=== PATIENT | male | born 1960 | race Two or more races ===

== ENCOUNTER 2023-05-01 17:29 | Inpatient (IN) | payer OTHER ==
[~2023-05-01] VITALS: Ht 177.8 cm; Wt 104.3 kg
[2023-05-01] MEDS ORDERED: WARFARIN SODIUM5 MG PO (17:41)
[2023-05-01] MEDS ORDERED: ROSUVASTATIN CAL5 MG PO (17:41)
[2023-05-01 19:12] LABS: PH,URINE 5.5 (5.0-8.0); URINE APPEARANCE Clear; URINE BACTERIA 12.5 uL (0.0-1933); URINE BILIRRUBIN Negative (NEGATIVE); URINE BLOOD Moderate; URINE COLOR Yellow; URINE EPITHELIAL CELLS 8.7 uL (0.0-38.8); URINE GLUCOSE Negative (NEGATIVE); URINE LEUKOCYTE Negative; URINE NITRATE Negative; URINE PROTEIN Negative (NEGATIVE); URINE RBC 24.7 uL (0.0-20.8); URINE WBC 4.4 uL (0.0-23.2)
[2023-05-01 19:44] LABS: HEMATOCRIT 39.8 % (39.0-48.0); HEMOGLOBIN 13.7 g/dL (13-16.00); MEAN CELL VOLUME 91.4 fL (80.0-100.00); MEAN CORPUSCULAR HEMOGLOBIN 31.3 pg (27.00-32.0); MEAN CORPUSCULAR HGB CONC 34.3 g/dl (32.0-36.0); PLATELET COUNT 200 K/uL (150-450); RED BLOOD COUNT 4.36 M/uL (4.00-6.00); RED CELL DISTRIBUTION WIDTH 13.6 % (11.5-14.5)
[2023-05-01 19:48] LABS: ERYTHROCYTE SEDIMENTATION RATE 53 mm/hr
[2023-05-01 20:00] LABS: D DIMER 0.5 MG/L; INR 2.33
[2023-05-01 20:04] LABS: ALBUMIN 3.3 gm/dL (3.4-5.0); BILIRUBIN TOTAL 0.73 mg/dL (0.3-1.2); CALCIUM 9.5 mg/dL (8.5-10.1); CREATININE SERUM 1.6 mg/dL (0.70-1.30); GFR 44.02; GLOBULINA 4.6 G/DL (2.4-3.5); POTASSIUM 3.84 mEq/L (3.5-5.1); TOTAL PROTEIN 7.9 gm/dL (6.4-8.2)
[2023-05-01 20:05] LABS: PARTIAL THROMBOPLASTIN TIME 43.5 SECONDS (22.0-34.0)
[2023-05-02 01:20] LABS: INR 2.47
[2023-05-02 01:21] LABS: CKMB 1.3 NG/ML (0.5-3.6)
[2023-05-02 01:24] LABS: C-REACTIVE PROTEIN 17.8 MG/DL (0.00-0.29); PROTHROMBIN TIME 24.3 SECONDS (9.0-11.5)
[2023-05-02 21:47] LABS: CALCIUM 8.7 mg/dL (8.5-10.1); CREATININE SERUM 1.27 mg/dL (0.70-1.30); GFR 57.46; POTASSIUM 3.97 mEq/L (3.5-5.1)
[2023-05-04 07:07] LABS: INR 2.24
[2023-05-04 07:09] LABS: PROTHROMBIN TIME 22.2 SECONDS (9.0-11.5)
[2023-05-04 12:08] LABS: HEMOGLOBIN 13.4 g/dL (13-16.00); MEAN CELL VOLUME 89.5 fL (80.0-100.00); MEAN CORPUSCULAR HEMOGLOBIN 30.8 pg (27.00-32.0); MEAN CORPUSCULAR HGB CONC 34.4 g/dl (32.0-36.0); PLATELET COUNT 245 K/uL (150-450); RED BLOOD COUNT 4.36 M/uL (4.00-6.00); RED CELL DISTRIBUTION WIDTH 13.5 % (11.5-14.5)
[2023-05-04 12:15] LABS: ERYTHROCYTE SEDIMENTATION RATE 66 mm/hr
[2023-05-05] MEDS ORDERED: AMOX-CLAV 875-1 EAC1 PO (14:32)
== END 2023-05-05 14:29 | disposition home or self-care (01) | DRG 872 ==
LOC: ER 17:29 → MEDI 23:03
PROVIDERS: General Practice; Internal Medicine Infectious Disease; ADMIT Specialist; ATTEND Specialist
PROC: B54BZZZ Ultrasonography of Right Lower Extremity Veins (ICD-10-PCS; principal; 2023-05-02)
PROC: BQ3FZZZ Magnetic Resonance Imaging (MRI) of Left Lower Leg (ICD-10-PCS; 2023-05-04)
PROC: BQ3DZZZ Magnetic Resonance Imaging (MRI) of Right Lower Leg (ICD-10-PCS; 2023-05-05)
DX: A41.9 Sepsis, unspecified organism (principal); I82.531 Chronic embolism and thrombosis of right popliteal vein; L03.115 Cellulitis of right lower limb; D72.828 Other elevated white blood cell count
CPT/HCPCS: 73722; 73725